=== PATIENT | female | born 1955 | race Caucasian/White ===

== ENCOUNTER 2020-08-15 08:49 | Outpatient (REF) | payer OTHER, SELFPAY ==
[2020-08-15 11:00] LABS: MANUAL DIFF FLAG NO
[2020-08-15 11:12] LABS: Basophils Percent Auto 0.2 % (0-2); Eosinophils Absolute Auto 0.2 X10*3/uL (0.0-0.4); Eosinophils Percent Auto 3.4 % (0-4); Glucose Urine UA NEG (NEG); Hematocrit 38.4 % (37-47); Hemoglobin 12.8 g/dl (12.0-16.0); Imm Gran Abs Auto 0.01 X10*3/uL (0.00-0.03); Imm Gran Pct Auto 0.2 % (0.0-0.4); Leukocyte Esterase Urine TRACE (NEG); Lymphocytes Absolute Auto 1.8 X10*3/uL (1.2-4.9); Lymphocytes Percent Auto 37.7 % (20-40); Mean Corpuscular HGB Conc 33.3 g/dl (31.0-35.0); Mean Corpuscular Hemoglobin 29.8 pg (27.0-33.0); Mean Corpuscular Volume 89.3 fL (80-98); Mean Platelet Volume 10.7 fL (9.4-12.3); Monocytes Absolute Auto 0.4 X10*3/uL (0.1-1.2); Monocytes Percent Auto 8.3 % (2-11); Neutrophils Absolute Auto 2.4 X10*3/uL (2.0-8.3); Neutrophils Percent Auto 50.2 % (45-73); Nitrite Urine NEG (NEG); Platelet Count 251 X10*3/uL (160-400); Red Cell Distribution Width 12.3 % (11.0-16.0); Urine Blood NEG (NEG); Urine Ketones NEG (NEG); Urine Protein NEG (NEG-TRACE); White Blood Count 4.7 X10*3/uL (4.8-10.8)
[2020-08-15 11:22] LABS: Appearance Urine CLEAR; Color Urine YELLOW
[2020-08-15 11:34] LABS: Alanine Aminotransferase 33 U/L (0-31); Albumin Level 4.4 g/dL (3.5-5.0); Alkaline Phosphatase 48 U/L (39-117); Anion Gap 12 (12-20); Aspartate Amino Transferase 23 U/L (5-31); Bilirubin Total 0.6 mg/dL (0.0-1.0); Blood Urea Nitrogen 19 mg/dL (9-16); Carbon Dioxide 29 mmol/L (22-29); Chloride 106 mmol/L (96-108); Cholesterol 261 mg/dL; Estimated Glomerular Filt Rate > 60; Glucose Fasting 91 mg/dL (60-99); HDL Cholesterol 55 mg/dL; LDL Cholesterol Calculated 190 mg/dl; Potassium 4.8 mmol/l (3.3-5.1); Sodium 142 mmol/L (135-145); Total Protein 6.6 g/dL (6.5-8.0); Triglycerides 82 mg/dL
[2020-08-15 11:45] LABS: Thyroid Stimulating Hormone 1.24 mIU/mL (0.32-4.0)
[2020-08-15 11:51] LABS: RBC Urine 0 /HPF (0); Squamous Epithelial Cell Urine TRACE /LPF; WBC Urine 0-2 /HPF (0-4)
== END 2020-08-15 08:50 | disposition home or self-care (01) ==
LOC: HO.HMGCLDS 08:49
PROVIDERS: PCP Internal Medicine; Visit Provider Internal Medicine
DX: Z00.00 Encounter for general adult medical examination without abnormal findings (principal); M85.80 Other specified disorders of bone density and structure, unspecified site
CPT/HCPCS: 36415; 80053; 80061; 81001; 81003; 84443; 85025

== ENCOUNTER 2022-06-11 09:14 | Outpatient (REF) | payer OTHER, SELFPAY ==
[2022-06-11 11:11] LABS: MANUAL DIFF FLAG NO
[2022-06-11 11:41] LABS: Alanine Aminotransferase 43 U/L (0-31); Albumin Level 4.6 g/dL (3.5-5.0); Alkaline Phosphatase 40 U/L (39-117); Anion Gap 13 (12-20); Aspartate Amino Transferase 28 U/L (5-31); Bilirubin Total 0.5 mg/dL (0.0-1.0); Blood Urea Nitrogen 18 mg/dL (9-16); Calcium 9.2 mg/dL (8.4-10.2); Carbon Dioxide 27 mmol/L (22-29); Chloride 105 mmol/L (96-108); Cholesterol 294 mg/dL; Estimated Glomerular Filt Rate > 60; Glucose Fasting 100 mg/dL (60-99); HDL Cholesterol 46 mg/dL; LDL Cholesterol Calculated 216 mg/dl; Potassium 4.1 mmol/L (3.3-5.1); Sodium 141 mmol/L (135-145); Triglycerides 163 mg/dL
[2022-06-11 11:44] LABS: Basophils Percent Auto 0.4 % (0-2); Eosinophils Absolute Auto 0.1 X10*3/uL (0.0-0.4); Eosinophils Percent Auto 2.4 % (0-4); Hematocrit 37.9 % (37.0-47.0); Hemoglobin 12.9 g/dl (12.0-16.0); Imm Gran Abs Auto 0.01 X10*3/uL (0.00-0.03); Imm Gran Pct Auto 0.2 % (0.0-0.4); Lymphocytes Absolute Auto 1.8 X10*3/uL (1.2-4.9); Lymphocytes Percent Auto 37.4 % (20-40); Mean Corpuscular Hemoglobin 29.6 pg (27.0-33.0); Mean Corpuscular Volume 86.9 fL (80.0-98.0); Mean Platelet Volume 10.6 fL (9.4-12.3); Monocytes Absolute Auto 0.4 X10*3/uL (0.1-1.2); Monocytes Percent Auto 8.1 % (2-11); Neutrophils Absolute Auto 2.4 x10*3/uL (2.0-8.3); Neutrophils Percent Auto 51.5 % (45-73); Platelet Count 258 X10*3/uL (160-400); Red Blood Count 4.36 X10*6/uL (4.20-5.50); Red Cell Distribution Width 12.1 % (11.0-16.0); White Blood Count 4.7 X10*3/uL (4.8-10.8)
[2022-06-11 12:01] LABS: TSH reflex Free T4 2.06 uIU/mL (0.32-4.0); Vitamin D 25-OH Total 26.9 ng/mL (>30)
== END 2022-06-11 09:15 | disposition home or self-care (01) ==
LOC: HO.HMGCLDS 09:14
PROVIDERS: PCP Internal Medicine; Visit Provider Internal Medicine
DX: Z00.00 Encounter for general adult medical examination without abnormal findings (principal); I20.8 Other forms of angina pectoris; M85.80 Other specified disorders of bone density and structure, unspecified site; R06.09 Other forms of dyspnea; E78.5 Hyperlipidemia, unspecified
CPT/HCPCS: 36415; 80053; 80061; 82306; 84443; 85025

== ENCOUNTER → 2022-06-14 08:56 | Outpatient (REF) | payer OTHER, SELFPAY ==
--- NOTE | 2022-06-14 08:58 | CA_ITS ---
Acquisition Time: 2022-06-14 09:07:05 Total Exercise Time: 00:06:42 Test Indications: SOB Medications: SEE CHART Protocol: KASEY Max HR: 134 BPM 88% of Pred: 151 BPM Max BP: 182/090 mmHG Max Work Load: 8.0 METS Exercise stress test with exercise 6 min 42 sec of Kasey protocol, achieving 88% MPHR, 8 METs, with mild sob, no chest discomfort, with few isolated PACs and PVCs, with elevated BP at baseline and further elevation with exercise, with artfiact during exercise and peak making EKGs challenging to interpret, in recovery EKGs are noted to have horizontal to downsloping ST depressions inferiorly and V4-V6, ischemic in appearance. Test reviewed with Dr Mace Message sent to her PCP with report and recommendation for stress echocardiogram Vs exercise nuclear stress test for further evaluation. Referred By: Beba Bridges Overread By: BIANCA NICOLAS
== END ==
LOC: HO.CARD 08:56
PROVIDERS: PCP Internal Medicine; Visit Provider Internal Medicine
DX: I20.8 Other forms of angina pectoris (principal); R06.09 Other forms of dyspnea; E78.5 Hyperlipidemia, unspecified
CPT/HCPCS: 93017

== ENCOUNTER 2022-07-18 07:51 | Outpatient (REF) | payer OTHER, SELFPAY ==
--- NOTE | ~2022-07-18 | US_ITS ---
EXAMINATION: US LOWER EXTREMITY VENOUS (REFLUX EXAM), BILATERAL CLINICAL INDICATION: Chronic venous insufficiency with lower extremity varicose veins with inflammation COMPARISON: None. TECHNIQUE: Color flow triplex imaging and compression Doppler was performed to evaluate both the deep and the superficial systems bilaterally. To evaluate the superficial system, the examination was performed in the upright position. Color-flow Doppler ultrasound and compression ultrasound were utilized. In addition, maneuvers were utilized to demonstrate reflux. FINDINGS: 1. DEEP VENOUS ULTRASOUND OF THE RIGHT LOWER EXTREMITY: Common Femoral Vein: Compressible, normal respiratory variation and augmented flow. Femoral Vein: Compressible, normal color flow and augmentation. Popliteal Vein: Compressible, normal augmentation. Deep Reflux: There is no evidence of reflux in the deep system in either the common femoral vein or the popliteal vein. There is no evidence of a Bean's cyst. 2. SUPERFICIAL ULTRASOUND WITH DOPPLER OF RIGHT LOWER EXTREMITY: GREAT SAPHENOUS VEIN: Saphenofemoral Junction: 0.4 cm; Reflux: 0 ms Proximal Thigh: 0.4 cm; Reflux: 0 ms Mid Thigh: 0.3 cm; Reflux: 0 ms Above Knee: 0.3 cm; Reflux: 0 ms At Knee: 0.2 cm; Reflux: 0 ms Below Knee: 0.2 cm; Reflux: 624 ms Mid Calf: 0.2 cm; Reflux: 0 ms Ankle: 0.2 cm; Reflux: 0 ms DUPLICATED MEDIAL GREAT SAPHENOUS VEIN: Diameter: None Imaged Reflux: NA DUPLICATED LATERAL GREAT SAPHENOUS VEIN: Diameter: 0.2 cm Reflux: None SMALL SAPHENOUS VEIN: Proximal: Not visualized Distal: 0.2 cm; Reflux: 0 ms VEIN OF GIACOMINI: None Imaged. PERFORATORS: Location: Distal thigh Size: 0.3 cm Reflux: None VARICOSITIES: Location: None Imaged Size: NA Reflux: NA 3. DEEP VENOUS ULTRASOUND OF THE LEFT LOWER EXTREMITY: Common Femoral Vein: Compressible, normal respiratory variation and augmented flow. Femoral Vein: Compressible, normal color flow and augmentation. Popliteal Vein: Compressible, normal augmentation. Deep Reflux: There is deep venous reflux in the common femoral vein measuring 1332 ms and in the superficial femoral vein measuring 2376 ms There is no evidence of a Bean's cyst. 4. SUPERFICIAL ULTRASOUND WITH DOPPLER OF LEFT LOWER EXTREMITY: GREAT SAPHENOUS VEIN: Saphenofemoral Junction: 0.6 cm; Reflux: 0 ms Proximal Thigh: 0.3 cm; Reflux: 0 ms Mid Thigh: 0.1 cm; Reflux: 0 ms Above Knee: 0.2 cm; Reflux: 0 ms At Knee: 0.2 cm; Reflux: 0 ms Below Knee: 0.2 cm; Reflux: 0 ms Mid Calf: 0.2 cm; Reflux: 0 ms Ankle: 0.1 cm; Reflux: 0 ms DUPLICATED MEDIAL GREAT SAPHENOUS VEIN: Diameter: None Imaged Reflux: NA DUPLICATED LATERAL GREAT SAPHENOUS VEIN: Diameter: 0.2 cm Reflux: None SMALL SAPHENOUS VEIN: Proximal: 0.2 cm; Reflux: 0 ms Distal: 0.2 cm; Reflux: 0 ms VEIN OF GIACOMINI: 0.2 cm without significant reflux PERFORATORS: Location: None Imaged Size: NA Reflux: NA VARICOSITIES: Location: None Imaged Size: NA Reflux: NA US/US venous duplex LE BI IMPRESSION: Right: Moderate focal reflux in the right great saphenous vein within the below-knee calf. No significant superficial venous reflux or varicosities otherwise Left: Moderate to severe deep venous reflux in the left common femoral vein and the superficial femoral vein. No significant superficial venous reflux in the left lower extremity
== END 2022-07-18 07:52 | disposition home or self-care (01) ==
LOC: HO.US 07:51
PROVIDERS: Visit Provider Surgery Vascular Surgery
DX: I83.11 Varicose veins of right lower extremity with inflammation (principal)
CPT/HCPCS: 93970

== ENCOUNTER 2022-11-07 08:51 | Outpatient (REF) | payer OTHER, SELFPAY ==
[2022-11-07 11:42] LABS: Cholesterol 267 mg/dL; HDL Cholesterol 46 mg/dL; LDL Cholesterol Calculated 201 mg/dl; Triglycerides 102 mg/dL
== END 2022-11-07 08:52 | disposition home or self-care (01) ==
LOC: HO.HMGCLDS 08:51
PROVIDERS: PCP Internal Medicine; Visit Provider Internal Medicine
DX: E78.5 Hyperlipidemia, unspecified (principal)
CPT/HCPCS: 36415; 80061

== ENCOUNTER 2023-02-15 09:02 | Outpatient (REF) | payer OTHER, SELFPAY ==
[2023-02-15 12:38] LABS: Alanine Aminotransferase 20 U/L (0-31); Albumin Level 4.5 g/dL (3.5-5.0); Alkaline Phosphatase 50 U/L (39-117); Anion Gap 13 (12-20); Aspartate Amino Transferase 18 U/L (5-31); Bilirubin Total 0.6 mg/dL (0.0-1.0); Blood Urea Nitrogen 18 mg/dL (9-16); Calcium 9.3 mg/dL (8.4-10.2); Carbon Dioxide 28 mmol/L (22-29); Chloride 107 mmol/L (96-108); Cholesterol 270 mg/dL; Estimated Glomerular Filt Rate 56; Glucose Fasting 94 mg/dL (60-99); HDL Cholesterol 50 mg/dL; LDL Cholesterol Calculated 199 mg/dl; Potassium 4.4 mmol/L (3.3-5.1); Sodium 144 mmol/L (135-145); Total Protein 6.8 g/dL (6.5-8.0); Triglycerides 106 mg/dL; Vitamin D 25-OH Total 33.6 ng/mL (>30)
== END 2023-02-15 09:03 | disposition home or self-care (01) ==
LOC: HO.HMGCLDS 09:02
PROVIDERS: PCP Internal Medicine; Visit Provider Internal Medicine
DX: E78.5 Hyperlipidemia, unspecified (principal)
CPT/HCPCS: 36415; 80053; 80061; 82306

== ENCOUNTER 2024-02-20 10:29 | Outpatient (AMB) | payer MEDICARE, SELFPAY ==
[2024-02-20 10:42] VITALS: BP 134/66; PULSE 78; O2SAT 98; BMI 24.1
--- NOTE | 2024-02-20 10:42 | A.OFFPC_ITS ---
Vital Signs 02/20/24 10:42 Height 5 ft 3 in Weight 136 lb BMI 24.1 BP 134/66 Blood Pressure Location Lt brachial Position Sitting Pulse 78 Pulse Source Pulse Oximeter Pulse Oximetry (%) 98 Oxygen Delivery Method Room Air Intake Visit Reasons: Referral for ENT doctor Intake Note: Pt is here today for a follow up visit. Pt states that she has a lot of noise and pain in her L ear. Allergies No Known Allergies Allergy (Verified 02/20/24 10:42) Medication List - Last Reconciled 02/20/24 by Beba Bridges MD alendronate 70 mg PO QWEEK cholecalciferol (vitamin D3) 25 mcg PO DAILY magnesium oxide 140 mg PO DAILY rosuvastatin (Crestor) 5 mg PO DAILY Tobacco use date assessed: 02/20/24 Fall risk assessment: No Falls in past year Last assessed Fall Risk: 02/20/24 Dental Screening Dental Screen Date: 02/20/24 Did you have a dental visit in the last 12 months?: Yes Did you have a dental problem in the last 6 months where you did not have access to dental care?: No Was dental information given to patient?: Patient has dentist HPI Referral for ENT doctor HPI Details Pt c/o L ear tinnitus and decreased hearing and chronic runny nose on and off for a few months. Pt was in [place] for 3 months and was taking Crestor instead of atorvastatin because she could not get enough supply. Patient reports recurrent episodes of choking on solids foods on and off for 2 years. She was evaluated by ENT last year but never had swallow study. [facility] Medical History Anxiety Hyperlipemia Annual physical exam Mammogram normal Osteopenia Normal Pap smear Normal colonoscopy Helicobacter pylori infection Surgical History History of tonsillectomy History of bladder suspension procedure Family History Father Parkinsons disease Mother Stomach cancer, Onset Age: 77 Social History Household Members Other:: , 1 daughter in accident 2020, biking, hiking, Housing: House Patient Tobacco Use Status: Never used Tobacco e-Cigarette/Vaping Use: Never Used service: No Current occupational status: retired Cognitive needs: No Hearing needs: No Vision needs: Yes Questionnaire PHQ-9 Over the last 2 weeks, how often have you been bothered by any of the following problems? 1. Little interest or pleasure in doing things: not at all 2. Feeling down, depressed, or hopeless: not at all 3. Trouble falling or staying asleep, or sleeping too much: not at all 4. Feeling tired or having little energy: not at all 5. Poor appetite or overeating: not at all 6. Feeling bad about yourself - or that you are a failure or have let yourself or your family down: not at all 7. Trouble concentrating on things, such as reading the newspaper or watching te levision: not at all 8. Moving or speaking so slowly that other people could have noticed. Or the opposite - being so fidgety or restless that you have been moving around a lot more than usual: not at all 9. Thoughts that you would be better off or of hurting yourself in some way: not at all Total score: 0 Depression Screening Interpretation: Negative Depression Screening Done: Yes Source: Developed by Drs. Jorje Galvez, Hemalatha Trejo, All Pritchett and colleagues, with an educational ge from [employer]. Thrive Questionnaire Date Thrive assessed: 02/20/24 I am a: Patient What is your living situation today?: I have a steady place to live Within the past 12 months, did the food you bought not last and you didn't have the money to get more?: Never true Within the past 12 months, did you worry whether your food would run out before you got money to buy more?: Never true Do you have trouble paying for medicines?: No Do you have trouble getting transportation to medical appointments?: No Do you have trouble paying your heating and electricity bill?: No Do you have trouble taking care of your child, family member or friend?: No Do you have trouble with day-to-day activities such as bathing, preparing meals, shopping, managing finances, etc.?: No Are you currently unemployed and looking for a job?: No Are you interested in more education?: No Please select the resources that you would like help with: None THRIVE Score: 0 AUDIT C Alcohol Use Questionnaire (AUDIT-C) 1. How often do you have a drink containing alcohol?: Monthly or less 2. How many drinks containing alcohol do you have on a typical day when you are drinking?: 1 or 2 3. How often do you have six or more drinks on one occasion?: Never Total Score: 1 MELVINA-7 AMB Questionnaire MELVINA-7 Date MELVINA - 7 assessed: 02/20/24 Feeling nervous, anxious, or on edge: 0 = Not at all Not being able to stop or control worryin = Not at all Worrying too much about different things: 0 = Not at all Trouble relaxin = Not at all Being so restless that it is hard to sit still: 0 = Not at all Becoming easily annoyed or irritable: 0 = Not at all Feeling afraid as if something awful might happen: 0 = Not at all Total MELVINA-7 score (0-4 normal; 5-9 mild; 10-14 moderate; 15-21 severe): 0 Source: Developed by Drs. Jorje Galvez, Hemalatha Trejo, All Pritchett and colleagues, with an educational ge from [employer]. Review of Systems Const All systems reviewed & are unremarkable except as noted in HPI and below Eyes Reports no additional complaints ENT Reports no additional complaints Card Reports no additional complaints Resp Reports no additional complaints GI Reports no additional complaints Reports no additional complaints Physical exam (Primary Care) Vital Signs: Last Vital Signs Pulse 78 02/20/24 10:42 BP 134/66 02/20/24 10:42 Pulse Ox 98 02/20/24 10:42 Oxygen Delivery Method Room Air 02/20/24 10:42 BMI result Body Mass Index 24.1 Tobacco/Smoking Status: Tobacco use Status Tobacco use date assessed 02/20/24 02/20/24 11:04 Patient Tobacco Use Status Never used Tobacco 02/20/24 11:04 e-Cigarette/Vaping Use Never Used 02/20/24 10:42 PHQ-9: PHQ-9 Score PHQ-9: Total score 0 02/20/24 11:37 Depression Screening Interpretation: Negative Thrive Assessment: Date of Thrive Assessment Date Thrive assessed 02/20/24 02/20/24 11:14 Const General: no acute distress HENMT Head: Yes normal to inspection Ears: TM's normal bilaterally Face and sinus: Yes normal facial exam Mouth: Normal oral and palatal mucosa present Throat: Yes posterior oropharynx normal Eyes General: appearance normal, both eyes and all related structures Neck Neck: Yes supple Resp Effort & Inspection: normal respiratory effort Auscultation: clear to auscultation bilaterally Cardio Rhythm: regular rhythm Heart sounds: S1 normal heart sound present and S2 normal heart sound present GI Inspection: Yes normal to inspection Palpation (GI): Soft to palpation Percussion: Yes normal to percussion Auscultation: normal bowel sounds Assessment and Plan Assessment & Plan (1) Oropharyngeal dysphagia: Code(s): R13.12 - Dysphagia, oropharyngeal phase Plan: Obtain barium swallow to evaluate for oropharyngeal dysphagia (2) Vitamin D deficiency: Code(s): E55.9 - Vitamin D deficiency, unspecified Plan: Check vitamin-D level (3) Tinnitus: Code(s): H93.19 - Tinnitus, unspecified ear Plan: Obtain hearing test to evaluate and referred to ENT as needed (4) Annual physical exam: Code(s): Z00.00 - Encounter for general adult medical examination without abnormal findings (5) Hyperlipemia: Code(s): E78.5 - Hyperlipidemia, unspecified Plan: Continue rosuvastatin return for fasting blood work in 1 month (6) Tinnitus: Code(s): H93.19 - Tinnitus, unspecified ear Plan: Obtain hearing evaluation Orders: Orders FL barium swallow modified Today R13.12 - Dysphagia, oropharyngeal phase TSH reflex Free T4 1 Month E55.9 - Vitamin D deficiency, unspecified, E78.5 - Hyperlipidemia, unspecified, H93.19 - Tinnitus, unspecified ear, R13.12 - Dysphagia, oropharyngeal phase, Z00.00 - Encounter for general adult medical examination without abnormal findings IRON PROFILE 1 Month E55.9 - Vitamin D deficiency, unspecified, E78.5 - Hyperlipidemia, unspecified, H93.19 - Tinnitus, unspecified ear, R13.12 - Dysphagia, oropharyngeal phase, Z00.00 - Encounter for general adult medical examination without abnormal findings Vitamin D 25-OH Total 1 Month E55.9 - Vitamin D deficiency, unspecified, E78.5 - Hyperlipidemia, unspecified, H93.19 - Tinnitus, unspecified ear, R13.12 - Dysphagia, oropharyngeal phase, Z00.00 - Encounter for general adult medical examination without abnormal findings Vitamin B12 and Folate 1 Month E55.9 - Vitamin D deficiency, unspecified, E78.5 - Hyperlipidemia, unspecified, H93.19 - Tinnitus, unspecified ear, R13.12 - Dysphagia, oropharyngeal phase, Z00.00 - Encounter for general adult medical examination without abnormal findings Comprehensive [place]. Panel Fast 1 Month E55.9 - Vitamin D deficiency, unspecified, E78.5 - Hyperlipidemia, unspecified, H93.19 - Tinnitus, unspecified ear, R13.12 - Dysphagia, oropharyngeal phase, Z00.00 - Encounter for general adult medical examination without abnormal findings Lipid Panel 1 Month E55.9 - Vitamin D deficiency, unspecified, E78.5 - Hyperlipidemia, unspecified, H93.19 - Tinnitus, unspecified ear, R13.12 - Dysphagia, oropharyngeal phase, Z00.00 - Encounter for general adult medical examination without abnormal findings Complete Blood Count Auto Diff 1 Month E55.9 - Vitamin D deficiency, unspecified, E78.5 - Hyperlipidemia, unspecified, H93.19 - Tinnitus, unspecified ear, R13.12 - Dysphagia, oropharyngeal phase, Z00.00 - Encounter for general adult medical examination without abnormal findings Referrals Speech and Hearing Referral H93.19 - Tinnitus, unspecified ear Medications: New rosuvastatin (Crestor) 5 mg PO DAILY 90 tabs 1RF Discontinued atorvastatin Discontinued Reason: Doctor's Order 80 mg PO DAILY 90 tabs 3RF Coding Level of Care Code Est Pt Level 4 (10580) Diagnoses Oropharyngeal dysphagia R13.12 Vitamin D deficiency E55.9 Tinnitus H93.19 Annual physical exam Z00.00 Hyperlipemia E78.5
== END 2024-02-20 15:35 | disposition home or self-care (01) ==
PROVIDERS: PCP Internal Medicine; Visit Provider Internal Medicine
DX: R13.12 Dysphagia, oropharyngeal phase (principal); E55.9 Vitamin D deficiency, unspecified; H93.12 Tinnitus, left ear; E78.5 Hyperlipidemia, unspecified
CPT/HCPCS: 99214

== ENCOUNTER 2024-03-16 08:32 | Outpatient (REF) | payer MEDICARE, SELFPAY ==
[2024-03-16 10:22] LABS: MANUAL DIFF FLAG NO
[2024-03-16 10:32] LABS: Basophils Percent Auto 0.3 % (0-2); Eosinophils Absolute Auto 0.2 X10*3/uL (0.0-0.4); Eosinophils Percent Auto 4.5 % (0-4); Hematocrit 38.6 % (37.0-47.0); Hemoglobin 12.9 g/dl (12.0-16.0); Lymphocytes Absolute Auto 1.6 X10*3/uL (1.2-4.9); Lymphocytes Percent Auto 39.2 % (20-40); Mean Corpuscular HGB Conc 33.4 g/dl (31.0-35.0); Mean Corpuscular Hemoglobin 29.9 pg (27.0-33.0); Mean Corpuscular Volume 89.4 fL (80.0-98.0); Mean Platelet Volume 10.4 fL (9.4-12.3); Monocytes Absolute Auto 0.3 X10*3/uL (0.1-1.2); Neutrophils Absolute Auto 1.9 x10*3/uL (2.0-8.3); Platelet Count 223 X10*3/uL (160-400); Red Blood Count 4.32 X10*6/uL (4.20-5.50); Red Cell Distribution Width 12.6 % (11.0-16.0)
[2024-03-16 11:06] LABS: Alanine Aminotransferase 23 U/L (0-31); Albumin Level 4.3 g/dL (3.5-5.0); Alkaline Phosphatase 42 U/L (39-117); Anion Gap 16 (12-20); Aspartate Amino Transferase 20 U/L (5-31); Bilirubin Total 0.4 mg/dL (0.0-1.0); Blood Urea Nitrogen 22 mg/dL (9-16); Calcium 9.6 mg/dL (8.4-10.2); Carbon Dioxide 27 mmol/L (22-29); Chloride 106 mmol/L (96-108); Cholesterol 244 mg/dL (<200); Estimated Glomerular Filt Rate > 60; Glucose Fasting 97 mg/dL (60-99); HDL Cholesterol 43 mg/dL (>40); Iron 110 mcg/dL (30-160); LDL Cholesterol Calculated 177 mg/dL (<100); Percent Iron Saturation 37 % (15-50); Sodium 144 mmol/L (135-145); Total Iron Binding Capacity 296 mcg/dL (228-428); Total Protein 6.9 g/dL (6.5-8.0); Triglycerides 120 mg/dL (<150); Unsaturated Iron Binding 186 ug/dL
[2024-03-16 11:24] LABS: Vitamin D 25-OH Total 32.7 ng/mL (>30)
[2024-03-16 11:26] LABS: Vitamin B12 393 pg/mL (200-900)
== END 2024-03-16 08:33 | disposition home or self-care (01) ==
LOC: HO.HMGCLDS 08:32
PROVIDERS: PCP Internal Medicine; Visit Provider Internal Medicine
DX: Z00.00 Encounter for general adult medical examination without abnormal findings (principal); E55.9 Vitamin D deficiency, unspecified; R13.12 Dysphagia, oropharyngeal phase; H93.19 Tinnitus, unspecified ear; E78.5 Hyperlipidemia, unspecified
CPT/HCPCS: 36415; 80053; 80061; 82306; 82607; 82746; 83540; 84443; 85025

== ENCOUNTER 2024-04-10 10:10 | Outpatient (REF) | payer MEDICARE, SELFPAY | END 2024-04-10 10:11 | disposition home or self-care (01) | LOC: HO.SH 10:10 | PROVIDERS: Visit Provider Internal Medicine | DX: Z01.118 Encounter for examination of ears and hearing with other abnormal findings (principal); H93.293 Other abnormal auditory perceptions, bilateral | CPT/HCPCS: 92552; 92567 ==

== ENCOUNTER 2025-01-14 10:55 | Outpatient (AMB) | payer MEDICARE, SELFPAY ==
[2025-01-14 10:57] VITALS: BP 132/78; PULSE 74; RESP 18; TEMP 36.6; O2SAT 98; BMI 24.3
--- NOTE | 2025-01-14 10:57 | MHC.PC.OV ---
Vital Signs 01/14/25 10:57 Height 5 ft 3 in Weight 137 lb BMI 24.3 BP 132/78 Blood Pressure Location Lt brachial Position Sitting Respiration 18 Pulse 74 Pulse Source Pulse Oximeter Temp 97.9 F Temp Source Oral Pulse Oximetry (%) 98 Oxygen Delivery Method Room Air Intake Visit Reasons: F/U Re: Speech & hearing Intake Note: Pt is here today for a follow up visit on hearing issues. Pt states that she does not have any issues now they all resolved. Allergies No Known Allergies Allergy (Verified 01/14/25 11:10) Medication List - Last Reconciled 01/14/25 by Beba Bridges MD alendronate 70 mg PO QWEEK cholecalciferol (vitamin D3) 25 mcg PO DAILY magnesium oxide 140 mg PO DAILY rosuvastatin 5 mg PO DAILY Tobacco use date assessed: 01/14/25 Fall risk assessment: No Falls in past year Last assessed Fall Risk: 01/14/25 Dental Screening Dental Screen Date: 01/14/25 Did you have a dental visit in the last 12 months?: Yes Did you have a dental problem in the last 6 months where you did not have access to dental care?: No Was dental information given to patient?: Patient has dentist HPI HPI Comments History of Present Illness Details Patient presents for physical [facility] Medical History (Updated 01/14/25 @ 12:06 by Beba Bridges MD) Hyperlipemia Annual physical exam Mammogram normal Osteopenia Normal Pap smear Normal colonoscopy Helicobacter pylori infection Surgical History History of tonsillectomy History of bladder suspension procedure Family History Father Parkinsons disease Mother Stomach cancer, Onset Age: 77 Social History (Updated 01/14/25 @ 12:04 by Beba Bridges MD) Household Members Other:: , daughter in 2019, biking, hiking, grandchildren in [place] Housing: House Patient Tobacco Use Status: Never used Tobacco e-Cigarette/Vaping Use: Never Used service: No Current occupational status: retired Cognitive needs: No Hearing needs: No Vision needs: Yes Questionnaire PHQ-9 Over the last 2 weeks, how often have you been bothered by any of the following problems? 1. Little interest or pleasure in doing things: not at all 2. Feeling down, depressed, or hopeless: not at all 3. Trouble falling or staying asleep, or sleeping too much: not at all 4. Feeling tired or having little energy: not at all 5. Poor appetite or overeating: not at all 6. Feeling bad about yourself - or that you are a failure or have let yourself or your family down: not at all 7. Trouble concentrating on things, such as reading the newspaper or watching television: not at all 8. Moving or speaking so slowly that other people could have noticed. Or the opposite - being so fidgety or restless that you have been moving around a lot more than usual: not at all 9. Thoughts that you would be better off or of hurting yourself in some way: not at all Total score: 0 Depression Screening Interpretation: Negative Depression Screening Done: Yes 80680 - PHQ-9 Billing: Yes Source: Developed by Drs. Jorje Galvez, Hemalatha Trejo, All Pritchett and colleagues, with an educational ge from [employer]. Thrive Questionnaire Date Thrive assessed: 01/14/25 I am a: Patient What is your living situation today?: I have a steady place to live Within the past 12 months, did the food you bought not last and you didn't have the money to get more?: Never true Within the past 12 months, did you worry whether your food would run out before you got money to buy more?: Never true Do you have trouble paying for medicines?: No Do you have trouble getting transportation to medical appointments?: No Do you have trouble paying your heating and electricity bill?: No Do you have trouble taking care of your child, family member or friend?: No Do you have trouble with day-to-day activities such as bathing, preparing meals, shopping, managing finances, etc.?: No Are you currently unemployed and looking for a job?: No Are you interested in more education?: No Please select the resources that you would like help with: None THRIVE Score: 0 AUDIT C Alcohol Use Questionnaire (AUDIT-C) 1. How often do you have a drink containing alcohol?: Monthly or less 2. How many drinks containing alcohol do you have on a typical day when you are drinking?: 1 or 2 3. How often do you have six or more drinks on one occasion?: Never Total Score: 1 MELVINA-7 AMB Questionnaire MELVINA-7 Date MELVINA - 7 assessed: 01/14/25 Feeling nervous, anxious, or on edge: 0 = Not at all Not being able to stop or control worryin = Not at all Worrying too much about different things: 0 = Not at all Trouble relaxin = Not at all Being so restless that it is hard to sit still: 0 = Not at all Becoming easily annoyed or irritable: 0 = Not at all Feeling afraid as if something awful might happen: 0 = Not at all Total MELVINA-7 score (0-4 normal; 5-9 mild; 10-14 moderate; 15-21 severe): 0 Source: Developed by Drs. Jorje Galvez, Hemalatha Trejo, All Pritchett and colleagues, with an educational ge from [employer]. MELVINA-7 Assessment Billing MELVINA-7 Assessment Tool: MELVINA-7 Assessment 89070 Review of Systems Const All systems reviewed & are unremarkable except as noted in HPI and below Eyes Reports no additional complaints ENT Reports no additional complaints Card Reports no additional complaints Resp Reports no additional complaints GI Reports no additional complaints Reports no additional complaints Physical exam (Primary Care) Vital Signs: Last Vital Signs Temp 97.9 F 01/14/25 10:57 Pulse 74 01/14/25 10:57 Resp 18 01/14/25 10:57 BP 132/78 01/14/25 10:57 Pulse Ox 98 01/14/25 10:57 Oxygen Delivery Method Room Air 01/14/25 10:57 BMI result Body Mass Index 24.3 Tobacco/Smoking Status: Tobacco use Status Tobacco use date assessed 01/14/25 01/14/25 11:13 Patient Tobacco Use Status Never used Tobacco 01/14/25 11:13 e-Cigarette/Vaping Use Never Used 01/14/25 10:57 PHQ-9: PHQ-9 Score PHQ-9: Total score 0 01/14/25 11:13 Depression Screening Interpretation: Negative Thrive Assessment: Date of Thrive Assessment Date Thrive assessed 01/14/25 01/14/25 11:13 Const General: no acute distress HENMT Head: Yes normal to inspection Ears: hearing grossly normal bilaterally Face and sinus: Yes normal facial exam Throat: Yes posterior oropharynx normal Eyes General: appearance normal, both eyes and all related structures Neck Neck: Yes no lymphadenopathy and Yes supple Resp Effort & Inspection: normal respiratory effort Auscultation: clear to auscultation bilaterally Cardio Rhythm: regular rhythm Heart sounds: S1 normal heart sound present and S2 normal heart sound present GI Inspection: Yes normal to inspection Palpation (GI): Soft to palpation Percussion: Yes normal to percussion Auscultation: normal bowel sounds Coding Level of Care Code Est Pt Prev Care >65y(40507) Diagnoses Hyperlipemia E78.5 Annual physical exam Z00.00 Osteopenia M85.80 Additional Codes MELVINA-7 Assessment Billing - MELVINA-7 Assessment Tool: MELVINA-7 Assessment 94030 ([id number]) PHQ-9 - 28627 - PHQ-9 Billing: Yes ([id number]) Assessment & Plan Assessment & Plan (1) Hyperlipemia: Code(s): E78.5 - Hyperlipidemia, unspecified Category: Medical Plan: Continue Crestor and low-cholesterol diet, patient will return for fasting blood work (2) Annual physical exam: Code(s): Z00.00 - Encounter for general adult medical examination without abnormal findings Category: Medical Plan: Well-balanced diet regular physical activity discussed with the patient. She is up-to-date with the mammogram colonoscopy and television news reporter exam (3) Osteopenia: Comment: Follow-up by television news reporter Dr. Barnard DEXA 2018, Started alendronate in 2019 for 5 yrs, repeat DEXA 12/2024 Code(s): M85.80 - Other specified disorders of bone density and structure, unspecified site Category: Medical Plan: Continue vitamin-D weight-bearing exercises, off alendronate this year after 5 years of treatment Orders: Orders Lipid Panel Today E78.5 - Hyperlipidemia, unspecified, F41.9 - Anxiety disorder, unspecified TSH reflex Free T4 Today E78.5 - Hyperlipidemia, unspecified, F41.9 - Anxiety disorder, unspecified UA w Microscopic Today Z00.00 - Encounter for general adult medical examination without abnormal findings Lipid Panel 1 Year E55.9 - Vitamin D deficiency, unspecified, E78.5 - Hyperlipidemia, unspecified, Z00.00 - Encounter for general adult medical examination without abnormal findings Comprehensive [place]. Panel Fast Today E78.5 - Hyperlipidemia, unspecified, F41.9 - Anxiety disorder, unspecified Complete Blood Count Auto Diff Today E78.5 - Hyperlipidemia, unspecified, F41.9 - Anxiety disorder, unspecified Vitamin D 25-OH Total Today E78.5 - Hyperlipidemia, unspecified, F41.9 - Anxiety disorder, unspecified Comprehensive [place]. Panel Fast 1 Year E55.9 - Vitamin D deficiency, unspecified, E78.5 - Hyperlipidemia, unspecified, Z00.00 - Encounter for general adult medical examination without abnormal findings Complete Blood Count Auto Diff 1 Year E55.9 - Vitamin D deficiency, unspecified, E78.5 - Hyperlipidemia, unspecified, Z00.00 - Encounter for general adult medical examination without abnormal findings Vitamin D 25-OH Total 1 Year E55.9 - Vitamin D deficiency, unspecified, E78.5 - Hyperlipidemia, unspecified, Z00.00 - Encounter for general adult medical examination without abnormal findings Medications: Refilled rosuvastatin 5 mg PO DAILY 90 tabs 3RF
--- OUTSIDE RECORDS SUMMARY | 2025-01-14 14:01 | XMS_ITS | Continuity of Care Document ---
Author Organization [facility] Address [address] [place] [address]- Care Team Providers Care Director Of Oncology Name Role Phone Beba Bridges MD Primary Care Physician [phone] Encounter 12/15/24 - 12/22/24 [facility] [address], [facility] [address] [place] [address]- Attending Physician: Josemanuel Barnard MD Admitting Physician: Josemanuel Barnard MD Referring Physician: Josemanuel Barnard MD Encounter Type: OutPatient One Time Allergies, Adverse Reactions, Alerts No Known Allergies Medications alendronate 70 mg oral tablet 1 tablet = 70 mg, By Mouth, Every week, # 12 tablet, 0 Refills, Maintenance, 05/01/19 9:24:55 AM EDT, Tablet Start Date: 05/01/19 Status: Ordered Quantity: 12.0 Unit: tablet Repeat number: 1 Flax Seed Oil 1 TSP, By Mouth, Daily, 0 Refills, Maintenance, 04/17/19 9:55:09 AM EDT Start Date: 04/17/19 Status: Ordered Repeat number: 1 Omeprazole = 20 mg, By Mouth, PRN Indigestion, 0 Refills, Maintenance, 04/17/19 9:53:39 AM EDT Start Date: 04/17/19 Status: Ordered Repeat number: 1 Patient's Own Meds Maintenance, ESTROGEN CREAM 2X WEEKLY, 04/17/19 9:51:23 AM EDT Start Date: 04/17/19 Status: Ordered Repeat number: 1 Senna S 50 mg-187 mg oral tablet 2 tablet, By Mouth, Daily at bedtime, # 30 tablet, 0 Refills, Maintenance, 05/01/19 11:09:02 AM EDT,Tablet Start Date: 05/01/19 Status: Ordered Quantity: 30.0 Unit: tablet Repeat number: 1 Vitamin D3 1000 intl units oral capsule 1 capsule = 1,000 International_Units, By Mouth, Daily, # 100 capsule, 0 Refills, Maintenance, 05/01/19 9:23:17 AM EDT, Capsule Start Date: 05/01/19 Status: Ordered Quantity: 100.0 Unit: capsule Repeat number: 1 Social History Social History Type Response Smoking Status Never (less than 100 in lifetime) entered on: 04/20/19 Sex Sex Representation Female (finding) Patient Care team information Care Team Personnel Name: Beba Bridges MD Position: [facility] Physician - Primary Care Member Role: PCP Address: [address] [place], [place] [address] Telecom: Care Team Related Persons Name: SADAF LUCAS Insurance Providers Guarantor name: TIFFANIE LUCAS Health Plan Information #: 2 Payer: [facility] Barb Sierra Member Number: [id number] Policy Number: NA Group Number: NA
== END 2025-01-14 11:49 | disposition home or self-care (01) ==
LOC: HO.HMCC 10:56
PROVIDERS: PCP Internal Medicine; Visit Provider Internal Medicine
DX: E78.5 Hyperlipidemia, unspecified (principal); Z00.00 Encounter for general adult medical examination without abnormal findings; M85.80 Other specified disorders of bone density and structure, unspecified site

== ENCOUNTER → 2025-01-14 10:55 | Outpatient (BNVA) | payer MEDICARE, SELFPAY | PROVIDERS: PCP Internal Medicine; Visit Provider Internal Medicine | DX: Z00.00 Encounter for general adult medical examination without abnormal findings (principal); E78.5 Hyperlipidemia, unspecified; M85.80 Other specified disorders of bone density and structure, unspecified site | CPT/HCPCS: 96127; 99397 ==